=== PATIENT | male | born 1995 | race Caucasian/White ===

== ENCOUNTER 2025-04-28 20:52 | Outpatient (REF) | payer BC, SELFPAY ==
[2025-04-28 22:02] LABS: HCT 47.4 % (40.0-50.0); HGB 15.9 g/dL (13.5-17.5); MCH 30.6 pg (27.0-33.0); MCHC 33.5 % (32.0-36.0); MCV 91 fL (80-95); MPV 10.0 fL (8.0-11.0); Platelet Count 271 10^3/uL (130-400); RBC 5.20 10^6/uL (4.36-5.78); RDW 12.9 % (11.8-14.1); RDW-SD 43.2 fL; WBC 7.14 10^3/uL (4.4-10.8)
[2025-04-28 22:16] LABS: Vitamin D 25 Total 13 ng/mL (30-100)
[2025-04-28 22:25] LABS: ALT 46 U/L (10-49); AST 36 U/L (<34); Albumin 5.0 g/dL (3.2-5.0); Alkaline Phosphatase 66 U/L (46-116); Anion Gap 9.7 mmol/L (3-11); BUN 17 mg/dL (9-23); Bilirubin, Total 0.70 mg/dL (0.2-1.2); CO2 27.3 mmol/L (20.0-31.0); Calcium 9.3 mg/dL (8.3-10.6); Chloride 105 mmol/L (98-107); Cholesterol 246 mg/dL (<200); Glucose 89 mg/dL (74-106); HDL Cholesterol 88 mg/dL (>40); Hemoglobin A1C 5.0 % (<5.7); Potassium 3.9 mmol/L (3.5-5.1); Sodium 142 mmol/L (136-145); Total Protein 7.6 g/dL (5.7-8.2)
[2025-04-29 22:24] LABS: Hepatitis C Ab w Rflx HCV PCR Negative (Negative)
[2025-04-29 22:33] LABS: HIV-1/2 Ag & Ab Screen Negative (Negative)
== END 2025-04-28 20:53 | disposition home or self-care (01) ==
LOC: NCHCN 20:52
DX: Z00.00 Encounter for general adult medical examination without abnormal findings (principal); Z13.1 Encounter for screening for diabetes mellitus; Z13.220 Encounter for screening for lipoid disorders; Z13.0 Encounter for screening for diseases of the blood and blood-forming organs and certain disorders involving the immune mechanism
CPT/HCPCS: 80053; 80061; 82306; 85027; 86803; 87389; 83036